=== PATIENT | female | born 1995 | race American Indian/Alaskan Native ===

== ENCOUNTER 2019-08-29 01:06 | Emergency (ER) | payer OTHER ==
[2019-08-29] MEDS ORDERED: IBUPROFEN 600 MG TAB PO ONE (01:46)
[2019-08-29] MEDS ORDERED: ONDANSETRON 4 MG ODT TAB PO ONE (01:46)
[2019-08-29 02:04] LABS: Basophils # (Auto) 0.1 K/mm3 (0.0-0.1); Basophils % (Auto) 0.6 % (0.0-1.8); Eosinophils # (Auto) 0.3 K/mm3 (0.0-0.4); Eosinophils % (Auto) 2.5 % (0.0-4.3); Hematocrit 29.2 % (30.3-42.9); Hemoglobin 9.4 gm/dl (10.1-14.3); Lymphocytes # (Auto) 3.1 K/mm3 (1.2-5.4); Lymphocytes % (Auto) 28.2 % (13.4-35.0); Mean Corpuscular HGB Conc 32 % (30-34); Monocytes # (Auto) 0.7 K/mm3 (0.0-0.8); Platelet Count 256 K/mm3 (140-440); Red Blood Count 4.57 M/mm3 (3.65-5.03); Red Cell Distribution Width 19.1 % (13.2-15.2)
[2019-08-29 02:13] LABS: Mean Corpuscular Volume 64 fl (79-97)
[2019-08-29 02:24] LABS: Alanine Aminotransferase 11 units/L (7-56); Albumin 3.9 g/dL (3.9-5); BUN/Creatinine Ratio 10; Blood Urea Nitrogen 7 mg/dL (7-17); Calcium 8.9 mg/dL (8.4-10.2); Hemolysis Index 11
[2019-08-29 02:26] LABS: Bilirubin,Urine NEG (Negative); Blood,Urine LG (Negative); Color,Urine Yellow (Yellow); Protein,Urine <15 mg/dL mg/dL (Negative); Urobilinogen,Urine < 2.0 mg/dL (<2.0)
[2019-08-29 02:30] LABS: HCG Qualitative,Urine Negative (Negative); RBC,Urine > 182.0 /HPF (0.0-6.0)
--- NOTE | 2019-08-29 02:45 | Emergency Department Report ---
ED Abdominal Pain HPI - General Chief Complaint: Abdominal Pain Stated Complaint: LOWER ABDOMINAL PAIN Time Seen by Provider: 08/29/19 01:46 Source: patient Mode of arrival: Ambulatory Limitations: No Limitations - History of Present Illness Initial Comments: Patient is a 24-year-old female presents emergency room with complaints of right, middle, lateral abdominal pain for the last 3 days. She states that she has had it intermittently over a year now. She states that at first she believed it was most likely related to gas pain. She denies any nausea, vomiting, diarrhea, fever, urinary symptoms. She states that she had a normal bowel movement today. She denies any past medical history allergies to medications. She states that she is currently on her menstrual cycle. She has not taken anything for the discomfort. She states that she ate pizza today without any difficulty. Severity scale (0 -10): 3 - Related Data Previous Rx's Medication Instructions Recorded Last Taken Type Docusate Sodium [Colace] 100 mg PO BID PRN #30 capsule 08/29/19 Unknown Rx Ferrous Sulfate [Ferrous Sulfate 324 mg PO DAILY #30 tablet. 08/29/19 Unknown Rx 324 MG] Allergies Allergy/AdvReac Type Severity Reaction Status Date / Time No Known Allergies Allergy Unverified 08/29/19 01:07 ED Review of Systems ROS: Stated complaint: LOWER ABDOMINAL PAIN Other details as noted in HPI Comment: All other systems reviewed and negative ED Past Medical Hx - Past Medical History Previous Medical History?: No - Surgical History Past Surgical History?: Yes Additional Surgical History: tonsils removed - Social History Smoking Status: Never Smoker Substance Use Type: Marijuana - Medications Home Medications: Home Medications Medication Instructions Recorded Confirmed Last Taken Type Docusate Sodium [Colace] 100 mg PO BID PRN #30 capsule 08/29/19 Unknown Rx Ferrous Sulfate [Ferrous Sulfate 324 mg PO DAILY #30 tablet. 08/29/19 Unknown Rx 324 MG] ED Physical Exam - General Limitations: No Limitations General appearance: alert, in no apparent distress - Head Head exam: Present: atraumatic, normocephalic - Eye Eye exam: Present: normal appearance - ENT ENT exam: Present: mucous membranes moist - Respiratory Respiratory exam: Present: normal lung sounds bilaterally. Absent: respiratory distress, wheezes, rales, rhonchi, stridor, chest wall tenderness, accessory m uscle use, decreased breath sounds, prolonged expiratory - Cardiovascular Cardiovascular Exam: Present: regular rate, normal rhythm, normal heart sounds. Absent: systolic murmur, diastolic murmur, rubs, gallop - GI/Abdominal GI/Abdominal exam: Present: soft, normal bowel sounds, other (no murphys sign, no mcburneys point ttp, no borja turners or cullens sign). Absent: distended, tenderness, guarding, rebound, rigid - Back Exam Back exam: Absent: CVA tenderness (R), CVA tenderness (L) - Neurological Exam Neurological exam: Present: alert, oriented X3 - Psychiatric Psychiatric exam: Present: normal affect, normal mood - Skin Skin exam: Present: warm, dry, intact ED Course Vital Signs 08/29/19 01:07 Temperature 98.9 F Pulse Rate 81 Respiratory 18 Rate Blood Pressure 135/93 O2 Sat by Pulse 100 Oximetry ED Medical Decision Making - Lab Data Result diagrams: 08/29/19 01:50 08/29/19 01:50 Lab Results 08/29/19 08/29/19 08/29/19 Range/Units 01:50 01:50 01:50 WBC 11.1 H (4.5-11.0) K/mm3 RBC 4.57 (3.65-5.03) M/mm3 Hgb 9.4 L (10.1-14.3) gm/dl Hct 29.2 L (30.3-42.9) % MCV 64 L (79-97) fl MCH 21 L (28-32) pg MCHC 32 (30-34) % RDW 19.1 H (13.2-15.2) % Plt Count 256 (140-440) K/mm3 Lymph % (Auto) 28.2 (13.4-35.0) % Mclennan % (Auto) 6.0 (0.0-7.3) % Eos % (Auto) 2.5 (0.0-4.3) % Baso % (Auto) 0.6 (0.0-1.8) % Lymph # 3.1 (1.2-5.4) K/mm3 Mclennan # 0.7 (0.0-0.8) K/mm3 Eos # 0.3 (0.0-0.4) K/mm3 Baso # 0.1 (0.0-0.1) K/mm3 Seg Neutrophils % 62.7 (40.0-70.0) % Seg Neutrophils # 6.9 (1.8-7.7) K/mm3 Sodium 137 (137-145) mmol/L Potassium 3.9 (3.6-5.0) mmol/L Chloride 100.1 (98-107) mmol/L Carbon Dioxide 24 (22-30) mmol/L Anion Gap 17 mmol/L BUN 7 (7-17) mg/dL Creatinine 0.7 (0.7-1.2) mg/dL Estimated GFR > 60 ml/min BUN/Creatinine Ratio 10 % Glucose 101 H (65-100) mg/dL Calcium 8.9 (8.4-10.2) mg/dL Total Bilirubin < 0.20 (0.1-1.2) mg/dL AST 14 (5-40) units/L ALT 11 (7-56) units/L Alkaline Phosphatase 76 (35-129) units/L Total Protein 6.8 (6.3-8.2) g/dL Albumin 3.9 (3.9-5) g/dL Albumin/Globulin Ratio 1.3 % Lipase 29 (13-60) units/L Urine Color (Yellow) Urine Turbidity (Clear) Urine pH (5.0-7.0) Ur Specific Cameron (1.003-1.030) Urine Protein (Negative) mg/dL Urine Glucose (UA) (Negative) mg/dL Urine Ketones (Negative) mg/dL Urine Blood (Negative) Urine Nitrite (Negative) Urine Bilirubin (Negative) Urine Urobilinogen (<2.0) mg/dL Ur Leukocyte Esterase (Negative) Urine WBC (Auto) (0.0-6.0) /HPF Urine RBC (Auto) (0.0-6.0) /HPF U Epithel Cells (Auto) (0-13.0) /HPF Urine Yeast (Budding) /HPF Urine HCG, Qual (Negative) 08/29/19 Range/Units Unknown WBC (4.5-11.0) K/mm3 RBC (3.65-5.03) M/mm3 Hgb (10.1-14.3) gm/dl Hct (30.3-42.9) % MCV (79-97) fl MCH (28-32) pg MCHC (30-34) % RDW (13.2-15.2) % Plt Count (140-440) K/mm3 Lymph % (Auto) (13.4-35.0) % Mclennan % (Auto) (0.0-7.3) % Eos % (Auto) (0.0-4.3) % Baso % (Auto) (0.0-1.8) % Lymph # (1.2-5.4) K/mm3 Mclennan # (0.0-0.8) K/mm3 Eos # (0.0-0.4) K/mm3 Baso # (0.0-0.1) K/mm3 Seg Neutrophils % (40.0-70.0) % Seg Neutrophils # (1.8-7.7) K/mm3 Sodium (137-145) mmol/L Potassium (3.6-5.0) mmol/L Chloride (98-107) mmol/L Carbon Dioxide (22-30) mmol/L Anion Gap mmol/L BUN (7-17) mg/dL Creatinine (0.7-1.2) mg/dL Estimated GFR ml/min BUN/Creatinine Ratio % Glucose (65-100) mg/dL Calcium (8.4-10.2) mg/dL Total Bilirubin (0.1-1.2) mg/dL AST (5-40) units/L ALT (7-56) units/L Alkaline Phosphatase (35-129) units/L Total Protein (6.3-8.2) g/dL Albumin (3.9-5) g/dL Albumin/Globulin Ratio % Lipase (13-60) units/L Urine Color Yellow (Yellow) Urine Turbidity Clear (Clear) Urine pH 6.0 (5.0-7.0) Ur Specific Cameron 1.011 (1.003-1.030) Urine Protein <15 mg/dl (Negative) mg/dL Urine Glucose (UA) Neg (Negative) mg/dL Urine Ketones Neg (Negative) mg/dL Urine Blood Lg (Negative) Urine Nitrite Neg (Negative) Urine Bilirubin Neg (Negative) Urine Urobilinogen < 2.0 (<2.0) mg/dL Ur Leukocyte Esterase Neg (Negative) Urine WBC (Auto) 8.0 H (0.0-6.0) /HPF Urine RBC (Auto) > 182.0 (0.0-6.0) /HPF U Epithel Cells (Auto) 3.0 (0-13.0) /HPF Urine Yeast (Budding) 1+ /HPF Urine HCG, Qual Negative (Negative) - Medical Decision Making Patient is a 24-year-old female presents emergency room with complaints of right, middle, lateral abdominal pain for the last 3 days. She states that she has had it intermittently over a year now. She states that at first she believed it was most likely related to gas pain. She denies any nausea, vomiting, diarrhea, fever, urinary symptoms. She states that she had a normal bowel movement today. She denies any past medical history allergies to medications. She states that she is currently on her menstrual cycle. She has not taken anything for the discomfort. She states that she ate pizza today without any difficulty. Vitals are normal. No abdominal tenderness on exam, no guarding, no rebound, no rigidity, normal bowel sounds, negative Wolff's and McBurney's point tenderness, negative Borja Deleon's and Venkat sign. Labs with mild microcytic anemia. H/H 9.4/29.2. Patient states that she does have heavy menstrual cycles. No leukocytosis. UA with many red blood cells but patient states that she is currently on her menstrual cycle. Small amount of white blood cells but no leukocyte esterase, no nitrites, no urinary symptoms, most likely contamination. Patient given Zofran and ibuprofen and symptoms completely resolved she was resting comfortably in the room and ready to go home. Will have patient follow-up with [facility] for the menorrhagia and intermittent abdominal pain. Patient given prescription for ferrous sulfate and Colace. advised pt Please take medication as prescribed. Increase your water intake. May alternate Tylenol or ibuprofen as needed for pain. Follow-up with [facility]. Follow-up with a primary care doctor. Return to the emergency room immediately for any new or worsening symptoms including but not limited to worsening abdominal pain, high fevers, unable to tolerate by mouth intake, etc. Critical care attestation.: If time is entered above; I have spent that time in minutes in the direct care of this critically ill patient, excluding procedure time. ED Disposition Clinical Impression: Microcytic anemia Abdominal pain Qualifiers: Abdominal location: unspecified location Qualified Code(s): R10.9 - Unspecified abdominal pain Menorrhagia Qualifiers: Menorrhagia type: with regular cycle Qualified Code(s): N92.0 - Excessive and frequent menstruation with regular cycle Disposition: TO HOME OR SELFCARE Is pt being admited?: No Does the pt Need Aspirin: No Condition: Stable Instructions: Iron Deficiency Anemia (ED), Abdominal Pain (ED), Menorrhagia (ED) Additional Instructions: Please take medication as prescribed. Increase your water intake. May alternate Tylenol or ibuprofen as needed for pain. Follow-up with [facility]. Follow-up with a primary care doctor. Return to the emergency room immediately for any new or worsening symptoms including but not limited to worsening abdominal pain, high fevers, unable to tolerate by mouth intake, etc. Prescriptions: Docusate Sodium [Colace] 100 mg PO BID PRN #30 capsule PRN Reason: Constipation Ferrous Sulfate [Ferrous Sulfate 324 MG] 324 mg PO DAILY #30 tablet.dr Referrals: [facility] [Provider Group] - 3-5 Days [facility] [Provider Group] - 3-5 Days [facility] [Provider Group] - 3-5 Days Time of Disposition: 02:52 Print Language: KOREAN
[2019-08-29 03:30] VITALS: BP 122/72
== END 2019-08-29 03:10 | disposition home or self-care (01) ==
LOC: ED 01:06
DX: D50.9 Iron deficiency anemia, unspecified (principal); N92.0 Excessive and frequent menstruation with regular cycle; R10.9 Unspecified abdominal pain; F12.10 Cannabis abuse, uncomplicated
CPT/HCPCS: 36415; 80053; 81001; 81025; 83690; 85025; 99283; Q0162

== ENCOUNTER 2021-05-02 12:31 | Emergency (ER) | payer OTHER ==
[2021-05-02 12:35] VITALS: BP 124/87
--- NOTE | 2021-05-02 12:53 | Emergency Department Report ---
ED General Adult HPI - General Stated complaint: SORE THROAT; Recurrent syncope PUI?: No Time Seen by Provider: 05/02/21 12:40 Source: patient Mode of arrival: Ambulatory Limitations: No Limitations - History of Present Illness Initial comments: 26-year-old female presents to the ER today with complaints of sore throat, and recurrent syncopal episodes. Patient states that she started with a sore throat couple days ago and today she noticed she started losing her voice. She reports pain with swallowing. She reports mild cough. She denies any rhinorrhea, nasal congestion or any associated fever. She denies any ill contacts or recent travel. She has not gotten a COVID-19 test nor has taken a COVID-19 vaccine. Patient also states that she wants to get checked out for her recurrent syncopal episodes. She states that since the beginning of the year she has been having recurrent syncopal episodes. Her most recent episode was last week . She states that this was either her fourth or fifth syncopal episode in the past year. She states that her syncopal episodes are typically preceded by her feeling lightheaded, having palpitations, intermittent blurry vision and sometimes a headache. She states that after the syncopal episode she usually goes and falls asleep and when she wakes up she feels better. She states that she is usually moving around or standing when she passes out. She states that it seems to only occur at home and is random. S she has not been having any chest pain or shortness of breath. She states that she has not gotten it checked out since it started in the beginning of the year. Other than history of anemia she has no other significant past medical history. She states that she stopped taking Depo about 5 months ago. Her last menstrual cycle was 2 weeks ago. She denies any illicit drug use or alcohol abuse. She denies any history of or risk factors for PE or DVT. MD Complaint: Sore throat/recurrent syncopal episodes -: days(s), month(s) - Related Data Previous Rx's Medication Instructions Recorded Last Taken Type Docusate Sodium [Colace] 100 mg PO BID PRN #30 capsule 08/29/19 Unknown Rx Ferrous Sulfate [Ferrous Sulfate 324 mg PO DAILY #30 tablet. 08/29/19 Unknown Rx 324 MG] Amoxicillin/Potassium Clav 1 each PO BID #14 tablet 05/02/21 Unknown Rx [Augmentin 875-125 Tablet] Allergies Allergy/AdvReac Type Severity Reaction Status Date / Time No Known Allergies Allergy Unverified 08/29/19 01:07 ED Review of Systems ROS: Stated complaint: SORE THROAT Other details as noted in HPI Comment: All other systems reviewed and negative Constitutional: denies: chills, fever Eyes: denies: eye pain, eye discharge, vision change ENT: throat pain. denies: ear pain, dental pain, hearing loss, congestion Respiratory: cough Gastrointestinal: denies: abdominal pain, nausea, vomiting, constipation, hematemesis, hematochezia Genitourinary: as per HPI Musculoskeletal: denies: back pain, joint swelling, arthralgia Skin: denies: rash, lesions Neurological: other (syncope ) Psychiatric: denies: anxiety, depression, auditory hallucinations, visual hallucinations, homicidal thoughts, suicidal thoughts Hematological/Lymphatic: denies: easy bleeding, easy bruising, swollen glands ED Past Medical Hx - Surgical History Additional Surgical History: tonsils removed - Social History Smoking Status: Never Smoker Substance Use Type: Marijuana - Medications Home Medications: Home Medications Medication Instructions Recorded Confirmed Last Taken Type Docusate Sodium [Colace] 100 mg PO BID PRN #30 capsule 08/29/19 Unknown Rx Ferrous Sulfate [Ferrous Sulfate 324 mg PO DAILY #30 tablet. 08/29/19 Unknown Rx 324 MG] Amoxicillin/Potassium Clav 1 each PO BID #14 tablet 05/02/21 Unknown Rx [Augmentin 875-125 Tablet] ED Physical Exam - General General appearance: alert, in no apparent distress - Head Head exam: Present: atraumatic, normocephalic, normal inspection - Eye Eye exam: Present: normal appearance, PERRL, EOMI Pupils: Present: normal accommodation - ENT ENT exam: Present: normal exam, mucous membranes moist, TM's normal bilaterally - Neck Neck exam: Present: normal inspection, full ROM. Absent: meningismus - Respiratory Respiratory exam: Present: normal lung sounds bilaterally. Absent: respiratory distress, wheezes, rales, rhonchi, stridor - Cardiovascular Cardiovascular Exam: Present: regular rate, normal rhythm, normal heart sounds - GI/Abdominal GI/Abdominal exam: Present: soft. Absent: distended, guarding, rebound - Neurological Exam Neurological exam: Present: alert, oriented X3, CN II-XII intact, normal gait - Psychiatric Psychiatric exam: Present: normal affect, normal mood - Skin Skin exam: Present: intact ED Course Vital Signs 05/02/21 12:34 Temperature 98.4 F Pulse Rate 90 Respiratory 18 Rate Blood Pressure 124/87 O2 Sat by Pulse 97 Oximetry ED Medical Decision Making - Lab Data Result diagrams: 05/02/21 13:06 05/02/21 13:06 - EKG Data EKG shows normal: sinus rhythm (64) Rate: normal - EKG Data Interpretation: normal EKG - Radiology Data Radiology results: report reviewed X-ray shows nothing acute. Head CT normal. - Medical Decision Making All labs reviewed-CBC shows leukocytosis with a white count of 17.8, UA is concerning for UTI, labs otherwise unremarkable. EKG shows normal sinus rhythm without any significant dysrhythmias or STEMI or acute ischemic changes. Chest x-ray normal. Head CT negative for anything acute. Patient orthostatic vital signs shows that she is not orthostatic. Overall patient is well-appearing, nontoxic and not in any acute distress. She is currently is awake alert and oriented x3 with a GCS of 15. She has a normal gait in the ER. She is not drooling, has no trismus, and her airway is patent. She has no meningeal signs on exam. She does not have any abdominal pain and has a soft nontender abdomen. She has no chest pain or shortness of breath. Patient does have a UTI which could account for elevated white count, but I do not suspect sepsis or any other significant bacterial infection that would warrant any additional work-up at this time.Exact cause of her recurrent syncopal episode at this time unclear. I do not suspect acute unstable angina, PE (PERC 0), CVA/TIA, significant vascular events, GI bleed or any other signifi cant pathology that would warrant further testing, continued ED treatment, admission, or specialist consult at this time. Discussed case with Dr. Holder ( Dr Mike has left for day) --he has agreed work-up, and agree with plan for patient to be discharged with outpatient follow-up with cardiology and neurology for further evaluation of her recurrent syncope. Discussed all results with patient. She will be started on antibiotics for UTI. Stressed to her the importance of following up with a spool worker and a neurologist for further work-up. Patient expressed understanding of all instructions and agree with plan. Patient was stable at time of discharge. Critical care attestation.: If time is entered above; I have spent that time in minutes in the direct care of this critically ill patient, excluding procedure time. ED Disposition Clinical Impression: Recurrent syncope, UTI (urinary tract infection), Pharyngitis Disposition: HOME / SELF CARE / HOMELESS Is pt being admited?: No Does the pt Need Aspirin: No Condition: Stable Instructions: Urinary Tract Infection, Adult, Sore Throat, Syncope, [id number] Additional Instructions: I recommend that you take the Augmentin as prescribed. You can take Tylenol and/or ibuprofen as needed for pain. Ultimately I do recommend that you follow- up with your primary care doctor as well as the spool worker and the neurologist listed on your discharge instructions for further work-up and evaluation of your syncopal episodes. Return to ED if worse. Prescriptions: Amoxicillin/Potassium Clav [Augmentin 875-125 Tablet] 1 each PO BID #14 tablet Referrals: MARISELA COATS MD [Staff Physician] - 3-5 Days (Primary care physician) CECILE ZULETA MD [Staff Physician] - 3-5 Days ([employer]ener [employer]ender) JAILENE HURLEY MD [Staff Physician] - 3-5 Days (Neurologist) Forms: Work/School Release Form(ED) Time of Disposition: 16:06
[2021-05-02 14:33] LABS: Basophils # (Auto) 0.1 K/mm3 (0.0-0.1); Basophils % (Auto) 0.3 % (0.0-1.8); Eosinophils # (Auto) 0.1 K/mm3 (0.0-0.4); Eosinophils % (Auto) 0.7 % (0.0-4.3); Hematocrit 36.4 % (30.3-42.9); Hemoglobin 12.2 gm/dl (10.1-14.3); Lymphocytes # (Auto) 2.9 K/mm3 (1.2-5.4); Lymphocytes % (Auto) 16.1 % (13.4-35.0); Mean Corpuscular HGB Conc 33 % (30-34); Mean Corpuscular Volume 78 fl (79-97); Monocytes # (Auto) 1.8 K/mm3 (0.0-0.8); Monocytes % (Auto) 10.4 % (0.0-7.3); Red Blood Count 4.64 M/mm3 (3.65-5.03); Red Cell Distribution Width 15.6 % (13.2-15.2)
[2021-05-02 14:47] LABS: Alanine Aminotransferase 10 units/L (7-56); Albumin 4.2 g/dL (3.9-5); Blood Urea Nitrogen 8 mg/dL (7-17); Calcium 9.3 mg/dL (8.4-10.2); Hemolysis Index 45
[2021-05-02 14:48] LABS: BUN/Creatinine Ratio 16
[2021-05-02 15:13] LABS: Bacteria,Urine 1+ /HPF (Negative); Bilirubin,Urine NEG (Negative); Blood,Urine NEG (Negative); Color,Urine Yellow (Yellow); Mucus,Urine 3+ /HPF; Protein,Urine <15 mg/dL mg/dL (Negative); Urobilinogen,Urine < 2.0 mg/dL (<2.0)
[2021-05-02 15:20] LABS: Platelet Count 260 K/mm3 (140-440)
--- NOTE | 2021-05-02 15:24 | Cat Scan Report ---
CT head/brain wo con INDICATION / CLINICAL INFORMATION: 26 years Female; recurrent syncope. TECHNIQUE: Routine CT head without contrast. All CT scans at this location are performed using CT dos e reduction for ALARA by means of automated exposure control. COMPARISON: None. FINDINGS: BRAIN / INTRACRANIAL CONTENTS: No acute hemorrhage, mass effect, midline shift, hydrocephalus, or acu te, large territorial infarct. No signs of significant atrophy or chronic infarct. No significant whi te matter abnormality seen. CRANIOCERVICAL JUNCTION: No significant abnormality. ORBITS: No significant abnormality of visualized orbits. SINUSES / MASTOIDS: Partial opacification of the mastoid seen on the right. Mild mucosal thickening s een in the left mastoids. ADDITIONAL FINDINGS: None. IMPRESSION: 1. No focal mass, hemorrhage, hydrocephalus, or acute, large territorial infarct. Signer Name: Balwinder Cody MD, III Signed: 05/02/2021 3:20 PM Workstation Name: [id number]
--- NOTE | 2021-05-02 15:51 | XRay Report ---
CHEST 2 VIEWS INDICATION: cough. COMPARISON: None. FINDINGS: Support devices: None. Heart: Within normal limits. Lungs/Pleura: No acute air space or interstitial disease. No significant pleural effusion. IMPRESSION: No acute findings. Signer Name: Héctor Casarez MD Signed: 05/02/2021 3:47 PM Workstation Name: [id number]
--- NOTE | 2021-05-03 09:40 | Electrocardiograph Report ---
[facility] Test Date: 2021-05-02 Test Time: 12:51:39 Pat Name: DAVID CRAIG Department: Room: Gender: F Surgical Scrub Tech: SHRADDHA : 1995 Requested By: FIOR EDWARDS Order Number: [id number] Reading MD: Maicol Rome Measurements Intervals [place] Rate: 64 P: 57 OR: 160 QRS: 59 QRSD: 100 T: 55 QT: 373 QTc: 385 Interpretive Statements Sinus arrhythmia Probable left atrial enlargement nonspecific st-t No previous ECG available for comparison Electronically Signed On 05-03-2021 9:40:26 EST by Maicol Rome
== END 2021-05-02 16:14 | disposition home or self-care (01) ==
LOC: ED 12:31
DX: N39.0 Urinary tract infection, site not specified (principal); J02.9 Acute pharyngitis, unspecified; R55 Syncope and collapse; Z79.899 Other long term (current) drug therapy
CPT/HCPCS: 36415; 70450; 71046; 80053; 81001; 83735; 84443; 84484; 84703; 85025; 87076; 87086; 87116; 87186; 87430; 93005; 99284